=== PATIENT | male | born 1980 | race Caucasian/White ===

== ENCOUNTER 2017-03-05 18:20 | Emergency (ER) | payer BC ==
[2017-03-05 18:51] VITALS: BP 148/101
--- NOTE | 2017-03-05 18:58 | UC ---
Upper Extremity HPI - HPI Summary HPI Summary: 36 YEAR OLD MALE PRESENTS WITH RIGHT WRIST PAIN SECONDARY TO A FALL. - History of Current Complaint Chief Complaint: UCUpperExtremity Stated Complaint: WRIST INJURY Time Seen by Provider: 03/05/17 18:56 Hx Obtained From: Patient Onset/Duration: Sudden Onset Severity Initially: Moderate Severity Currently: Moderate Pain Scale Used: 0-10 Numeric - 5 Character: Sharp Aggravating Factor(s): Movement, Lifting, Flexion, Extension Alleviating Factor(s): Nothing Associated Signs And Symptoms: Positive: Swelling - Allergies/Home Medications Allergies/Adverse Reactions: Allergies Allergy/AdvReac Type Severity Reaction Status Date / Time Penicillins Allergy Intermediate "Can't Verified 03/05/17 18:51 Remember" Amoxicillin Allergy "can't Verified 03/05/17 18:51 remember" PMH/Surg Hx/FS Hx/Imm Hx Previously Healthy: Yes - Surgical History Surgical History: Yes Surgery Procedure, Year, and Place: 06/26/2012 CYSTOSCOPY WITH LEFT STENT INSERTION, [facility]. 2007 OR 2008 [facility] - Social History Alcohol Use: Occasionally Substance Use Type: None Smoking Status (MU): Never Smoked Tobacco Review of Systems Constitutional: Negative Skin: Negative Eyes: Negative ENT: Negative Respiratory: Negative Cardiovascular: Negative Gastrointestinal: Negative Genitourinary: Negative Motor: Negative Neurovascular: Negative Musculoskeletal: Other: - RIGHT WRIST PAIN/SWELLING Neurological: Negative Psychological: Negative All Other Systems Reviewed And Are Negative: Yes Physical Exam Triage Information Reviewed: Yes Vital Signs: Initial Vital Signs Temp 37.1 C 03/05/17 18:45 Pulse 100 03/05/17 18:45 Resp 18 03/05/17 18:45 BP 148/101 03/05/17 18:45 Pulse Ox 96 03/05/17 18:45 Eye Exam: Normal ENT Exam: Normal Dental Exam: Normal Neck exam: Normal Neck: Positive: 1 Respiratory Exam: Normal Cardiovascular Exam: Normal Abdominal Exam: Normal Musculoskeletal: Positive: Other: - RIGHT WRIST PAIN/SWELLING Neurological Exam: Normal Psychological Exam: Normal Skin Exam: Normal Upper Extremity Course/Dx - Differential Dx/Diagnosis Provider Diagnoses: RIGHT WRIST PAIN/SWELLING/SPRAIN Discharge - Discharge Plan Condition: Stable Disposition: HOME Prescriptions: Meloxicam [Mobic] 7.5 mg PO BID #30 tab Patient Education Materials: Wrist Sprain (ED) Referrals: Suresh Go MD [Medical Doctor] - Arvin Rivera MD [Primary Care Provider] -
--- NOTE | 2017-03-05 19:25 | RAD ---
INDICATION: Right wrist pain after falling 15 feet COMPARISON: None. TECHNIQUE: 3 views right wrist. REPORT: The visualized bones are properly aligned and well corticated. The joint spaces are normal.There is no fracture, dislocation or other focal osseous abnormality. IMPRESSION: Normal radiograph of the right wrist. If the patient's symptoms persist, follow-up imaging is recommended.
== END 2017-03-05 19:21 | disposition home or self-care (01) ==
LOC: UCEAST 18:20
DX: S63.501A Unspecified sprain of right wrist, initial encounter (principal); W19.XXXA Unspecified fall, initial encounter; Y93.9 Activity, unspecified; Y92.9 Unspecified place or not applicable; Z88.0 Allergy status to penicillin
CPT/HCPCS: 99202; G0463

== ENCOUNTER 2018-03-07 21:02 | Emergency (ER) | payer BC ==
[2018-03-07 21:12] VITALS: BP 173/110
[2018-03-07] MEDS ORDERED: Clindamycin CAP* 150 MG PO ONE (21:27)
[2018-03-07] MEDS ORDERED: HYDROcodone/ACETAMIN 5-325 MG* 1 TAB PO ONE (21:27)
--- NOTE | 2018-03-07 21:27 | UC ---
UC Dental HPI - HPI Summary HPI Summary: worsening dental pain for 2 weeks-back molar right lower and left upper and lower - History of Current Complaint Chief Complaint: UCDentalProblem Stated Complaint: TEETH & JAW PAIN Time Seen by Provider: 03/07/18 21:05 Hx Obtained From: Patient Onset/Duration: Gradual Onset, Lasting Weeks - 2, Still Present Pain Intensity: 9 Pain Scale Used: 0-10 Numeric Aggravating Factor(s): Heat, Cold, Chewing Alleviating Factor(s): Nothing Related History: Previous Dental Care on Same Tooth - Allergies/Home Medications Allergies/Adverse Reactions: Allergies Allergy/AdvReac Type Severity Reaction Status Date / Time Penicillins Allergy Unknown Unknown Verified 03/07/18 21:12 Reaction Details amoxicillin Allergy Unknown Verified 03/07/18 21:12 Reaction Details Home Medications: Home Medications Ibuprofen TAB* [Advil TAB*] 800 mg PO PRN 03/07/18 [History] PMH/Surg Hx/FS Hx/Imm Hx Previously Healthy: No - Surgical History Surgical History: Yes Surgery Procedure, Year, and Place: 06/26/2012 CYSTOSCOPY [place] [facility] [place] [facility] - Family History Known Family History: Positive: None - Social History Occupation: Employed Full-time Lives: With Family Alcohol Use: Occasionally Substance Use Type: None Smoking Status (MU): Never Smoked Tobacco Review of Systems Constitutional: Negative Skin: Negative Eyes: Negative ENT: Dental Pain Respiratory: Negative Cardiovascular: Negative Gastrointestinal: Negative Genitourinary: Negative Motor: Negative Neurovascular: Negative Musculoskeletal: Negative Neurological: Negative Psychological: Negative Is Patient Immunocompromised?: No All Other Systems Reviewed And Are Negative: Yes Physical Exam Triage Information Reviewed: Yes Appearance: Well-Appearing, Well-Nourished, Pain Distress Vital Signs: Initial Vital Signs Temp 98.1 F 03/07/18 21:08 Pulse 87 03/07/18 21:08 Resp 18 03/07/18 21:08 BP 173/110 03/07/18 21:08 Pulse Ox 97 03/07/18 21:08 Vital Signs Reviewed: Yes Eye Exam: Normal Eyes: Positive: Conjunctiva Clear ENT Exam: Normal ENT: Positive: Normal ENT inspection, Hearing grossly normal, Pharynx normal, Dental tenderness, Uvula midline. Negative: Trismus, Muffled voice, Hoarse voice, Sinus tenderness Dental Exam: Other Dental: Positive: Percussion Tenderness @ - right and left lower molars left upper molars, Gross Decay/Caries @ - bottom right and left molars, upper left molars, Abscess @ Neck exam: Normal Neck: Positive: Supple, Nontender Respiratory Exam: Normal Respiratory: Positive: Chest non-tender, No respiratory distress, No accessory muscle use Cardiovascular Exam: Normal Cardiovascular: Positive: RRR, Pulses Normal, Brisk Capillary Refill Musculoskeletal Exam: Normal Musculoskeletal: Positive: Strength Intact, ROM Intact, No Edema Neurological Exam: Normal Neurological: Positive: Alert, Muscle Tone Normal Psychological Exam: Normal Psychological: Positive: Normal Response To Family, Age Appropriate Behavior, Consolable Skin Exam: Normal Dental Complaint Course/Dx - Course Course Of Treatment: recheck blood pressure with pcp this week, clindamycin and pain med follow with dentist and pcp this week - Differential Dx/Diagnosis Provider Diagnoses: elevated blood pressure , dental caries right lower molars and left upper and lower molars Discharge - Sign-Out/Discharge Documenting (check all that apply): Patient Departure All imaging exams completed and their final reports reviewed: No Studies - Discharge Plan Condition: Stable Disposition: HOME Prescriptions: Clindamycin Cap(NF) [Clindamycin Cap 300 mg Cap(NF)] 300 mg PO Q6H #40 cap Hydrocodone/Acetaminophen [Hydrocodone-Acetamin 5-325 mg] 1 each PO Q4HR PRN # 10 tablet MDD 4 PRN Reason: Pain (Dental) Patient Education Materials: Dental Abscess (ED), Hypertension (ED), Toothache (ED) Referrals: Arvin Rivera MD [Primary Care Provider] - 1 Week Additional Instructions: Follow with dentist this week! - Billing Disposition and Condition Condition: STABLE Disposition: Home
== END 2018-03-07 21:45 | disposition home or self-care (01) ==
LOC: UCEAST 21:02
DX: K02.9 Dental caries, unspecified (principal); R03.0 Elevated blood-pressure reading, without diagnosis of hypertension; Z88.0 Allergy status to penicillin
CPT/HCPCS: 99212; A9270-GY; G0463

== ENCOUNTER 2019-08-07 12:25 | Emergency (ER) | payer BC ==
--- OUTSIDE RECORDS SUMMARY | 2019-08-07 14:09 | XMS REPORT | Continuity of Care Document ---
:1980 External Reference #:[id number] Author Name Tayla Casper NP (transmitted by agent of provider Nydia Buckner) Address [address] [place] [address] Care Team Providers Name Role Phone Woody Collins D.O. 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 Recreational Drug Use Has Used In Past Allergies, Adverse Reactions, Alerts Active Allergies Reaction Severity Comments Date Penicillin 06/01/2018 Amoxicillin 06/01/2018 Medications Description No Active Medications Immunizations Description No Information Available Vital Signs Date Vital Result Comment 07/05/2019 2:44pm Weight 319.00 lb Height 74 inches 6'2" BMI (Body Mass Index) 41.0 kg/m2 BP Systolic 153 mmHg BP Diastolic 99 mmHg Heart Rate 84 /min O2 % BldC Oximetry 94 % Body Temperature 97.6 F Pain Level 0 03/30/2019 5:08pm Weight 311.00 lb Height 74 inches 6'2" BMI (Body Mass Index) 39.9 kg/m2 BP Systolic 148 mmHg BP Diastolic 91 mmHg Heart Rate 92 /min O2 % BldC Oximetry 93 % Body Temperature 96.7 F Pain Level 0 Results Description No Information Available Procedures Date Code Description Status 04/18/2019 03707 Sleep Stage 4 Or More Cpap Titra Completed Medical Devices Description No Information Available Encounters Type Date Location Provider Dx Diagnosis Office Visit 03/30/2019 Main Office John Emanuel M.D. G47.33 Obstructive sleep 5:15p apnea (adult) (pediatric) E66.9 Obesity, unspecified Assessments Date Code Description Provider 04/18/2019 G47.33 Obstructive sleep apnea (adult) Sleep Lab - Erick Martini MD (pediatric) 03/30/2019 G47.33 Obstructive sleep apnea (adult) John Emanuel M.D. (pediatric) 03/30/2019 E66.9 Obesity, unspecified John Emanuel M.D. Plan of Treatment No Information Available Functional Status Description No Information Available Mental Status Description No Information Available Referrals Refer to Dr Reason for Referral Status Appt Date John Emanuel M.D. [employer] Created [address] [place] [address] [id number] [phone]
[2019-08-07 14:23] VITALS: BP 132/88
[2019-08-07 14:46] LABS: Influenza A Molecular Negative (Negative); Influenza B Molecular Negative (Negative)
--- NOTE | 2019-08-07 15:02 | UC ---
FLU HPI - HPI Summary HPI Summary: 3 days of sore throat, painful to swallow, and headache. Pt states that last week it was the left side of his throat that hurt but that it went away and now the right side of his throat hurts. Pt states he took sudafed and ibuprofin at home today for relief. last took ibu at 3am. - History of Current Complaint Chief Complaint: UCGeneralIllness Stated Complaint: SORE THROAT Time Seen by Provider: 08/07/19 14:19 Hx Obtained From: Patient Pain Intensity: 8 Pain Scale Used: 0-10 Numeric - Allergy/Home Medications Allergies/Adverse Reactions: Allergies Allergy/AdvReac Type Severity Reaction Status Date / Time Penicillins Allergy Unknown Unknown Verified 08/07/19 14:23 Reaction Details amoxicillin Allergy Unknown Verified 08/07/19 14:23 Reaction Details Home Medications: Home Medications Hydrocodone/Acetaminophen [Hydrocodone-Acetamin 5-325 mg] 1 each PO Q4HR PRN # 10 tablet MDD 4 03/07/18 [Rx] Ibuprofen TAB* [Advil TAB*] 800 mg PO PRN 03/07/18 [History] Dextromethorphan/Benzocaine [Cepacol Sorethroat-Cough Cheli] 1 each PO Q2HR #90 lozenge 08/07/19 [Rx] PMH/Surg Hx/FS Hx/Imm Hx Previously Healthy: Yes - Surgical History Surgical History: Yes Surgery Procedure, Year, and Place: 06/26/2012 CYSTOSCOPY WITH LEFT STENT INSERTION, [facility]. 2007 OR 2008 [facility] - Family History Known Family History: Positive: None - Social History Alcohol Use: Occasionally Substance Use Type: None Smoking Status (MU): Never Smoked Tobacco Type: Smokeless Tobacco Review of Systems All Other Systems Reviewed And Are Negative: Yes Constitutional: Positive: Fever, Chills. Negative: Fatigue Skin: Negative: Rash ENT: Positive: Sore Throat, Sinus Congestion. Negative: Ear Ache, Nasal Discharge, Sinus Pain/Tenderness Respiratory: Positive: Cough. Negative: Shortness Of Breath Cardiovascular: Negative: Chest Pain Gastrointestinal: Negative: Vomiting, Diarrhea Neurological/Mental Status: Negative: Headache, Weakness, Paresthesia, Numbness Physical Exam Triage Information Reviewed: Yes Appearance: Well-Appearing Vital Signs: Initial Vital Signs Temp 100.1 F 08/07/19 14:12 Pulse 82 02/22/20 14:12 Resp 19 08/07/19 14:12 BP 132/88 08/07/19 14:12 Pulse Ox 97 08/07/19 14:12 Vital Signs Reviewed: Yes Eyes: Positive: Conjunctiva Clear ENT: Positive: Pharyngeal erythema, Nasal congestion, Tonsillar swelling - bilate, Uvula midline. Negative: Tonsillar exudate, Muffled voice, Other - no drooling Neck: Positive: Supple, No Lymphadenopathy, Tenderness @ - bilat ant. cervical Respiratory Exam: Normal Cardiovascular Exam: Normal Neurological: Positive: Alert Skin: Negative: Rashes Flu Course/Dx - Course Course Of Treatment: Fever, sore throat, glover w/ neg. rapid flu and rapid strep today. exam significant for erythematous oropharynx. viral etiology. self limiting. offered work note, he declined. disc ways to manage symptoms. vitals good but slightly febrile. - Differential Dx/Diagnosis Differential Diagnosis/HQI/PQRI: Influenza, Upper Respiratory Infection, Other Provider Diagnosis: Viral syndrome Discharge ED - Sign-Out/Discharge Documenting (check all that apply): Patient Departure All imaging exams completed and their final reports reviewed: No Studies - Discharge Plan Condition: Good Disposition: HOME Prescriptions: Dextromethorphan/Benzocaine [Cepacol Sorethroat-Cough Cheli] 1 each PO Q2HR #90 lozenge Patient Education Materials: Viral Syndrome (ED) Referrals: No Primary Care Phys,NOPCP [Primary Care Provider] - Additional Instructions: iF WORSENING PLEASE GO TO ed - Billing Disposition and Condition Condition: GOOD Disposition: Home
== END 2019-08-07 15:17 | disposition home or self-care (01) ==
LOC: UCCORT 12:25
DX: B34.9 Viral infection, unspecified (principal); J02.9 Acute pharyngitis, unspecified; R09.89 Other specified symptoms and signs involving the circulatory and respiratory systems; R05 Cough; Z88.0 Allergy status to penicillin
CPT/HCPCS: 87651; 99211; G0463